=== PATIENT | female | born 1965 | race Caucasian/White ===

== ENCOUNTER 2022-12-11 08:10 | Outpatient (CLI) | payer BC, SELFPAY ==
[2022-12-11 08:48] LABS: Hematocrit 41.4 % (37.0-47.0); Hemoglobin 13.5 g/dL (12.0-15.0)
[2022-12-11 09:00] LABS: Anion Gap 4 mmol/L (8-16); Blood Urea Nitrogen 11 mg/dL (7-17); Calcium 9.1 mg/dL (8.4-10.2); Carbon Dioxide 31 mmol/L (22-30); Chloride 103 mmol/L (98-107); Estimated Glomerular Filt Rate > 60; Glucose 95 mg/dL (65-110); Potassium 4.5 mmol/L (3.4-5.0); Sodium 138 mmol/L (137-145)
== END 2022-12-11 08:11 | disposition home or self-care (01) ==
LOC: ANHSURGERY 08:14
PROVIDERS: Anesthesiology; PCP Family Medicine; Visit Provider Obstetrics & Gynecology
DX: R73.03 Prediabetes (principal); N95.0 Postmenopausal bleeding; Z01.818 Encounter for other preprocedural examination
CPT/HCPCS: 36415; 80048; 85014; 85018

== ENCOUNTER 2022-12-14 01:51 | Day surgery (SDC) | payer BC, SELFPAY ==
[2022-12-06 18:36] VITALS: BMI 25.0
--- NOTE | 2022-12-06 18:41 | SUR.PREOP ---
Report to the Outpatient Waiting Room, entrance under the green pavilion located off [facility], at time _1115 on date _12/14/22 . Planned Procedure Time: __1:15pm . Time changes happen often and if your time is changed the preop area will call you the afternoon before. - You and your visitor will be asked to self-screen and do not enter if you have any COVID symptoms. - A mask is optional within the hospital at this time. Patients may have clear liquids (water, carbonated beverages, clear teas, apple juice) until 3 hours prior to surgery with a maximum of 20 ounces. - No food from midnight until time of surgery - Infants may have breast milk until 4 hours before surgery, formula 6 hours prior to surgery. - Children will be allowed to drink immediately following surgery. If applicable, please bring a bottle or sippy cup to assist with drinking. Juice, water, soda, and popsicles are readily available. For infants on formula, please bring formula the day of surgery. Pacifiers are allowed. Take the following medications with a SIP of water the morning of surgery: __LIOTHYROXINE DO NOT STOP ANY OF YOUR OTHER PRESCRIPTION MEDICATIONS PRIOR TO SURGERY ?EXCEPT THE FOLLOWING Medications to discontinue per physician N/A Date to take last dose___N/A Please no make-up, nail uzbek, hairspray, perfume, deodorant, or body powder the day of surgery. No jewelry (including any body piercings) or valuables the day of surgery, leave them at home. Please take a shower or bath the night before, or the morning of, surgery with an antibacterial soap. Wear comfortable, loose fitting clothing. Children are encouraged to wear pajamas. - Jewelry must be removed prior to entering the operating room. Rings and piercings that are not removed may be cut off. - The hospital will not accept responsibility for valuables. - Please leave all valuables, including medications, at home the day of surgery. If you are going home after surgery, a licensed industrial truck driver must drive you home. - NO public transportation without another adult if you receive anesthesia. - We recommend that an adult stay with you for 24 hours following discharge. - We also recommend that you do not drive, make important decision, drink alcoholic beverages, or take any drugs that were not prescribed by your health care provider for at least 24 hours after your discharge time. For Pediatric surgeries, we recommend two adults accompany the child home. Follow any additional instructions given to you from your surgeon. If you or anyone in your household have experienced Covid symptoms in the past week, please notify your surgeon or the nurse liaison at the phone number below for possible testing. Telephone instructions given to MG PENA and asked if any additional questions and then verbalized understanding. Patient advised to call surgeon office or pre surgery nurse liaison [phone] if any additional questions.
--- NOTE | 2022-12-11 12:19 | PM.IMHP ---
H&P: HPI History of Present Illness Date/Time: 12/11/22 12:19 Chief Complaint: Bleeding Narrative: This is a 57-year-old female with bleeding and laminectomy. Patient has an IUD this in the right spot. There was a submucosal fibroid present and we will be taking out her IUD and removing the fibroid hysteroscopically. Risks and benefits reviewed in great detail. She had all questions answered. She asked proceeded [facility] Past Medical History Medical History Cervical cancer Prediabetes Thyroid dysfunction Surgical History Surgical History H/O LEEP Family History Family History Father Diabetes mellitus Hypertension Cerebrovascular accident Grandparent Diabetes mellitus Hypertension Sibling Asthma Social History Social History Smoking status: Never smoker Second hand tobacco smoke exposure: No Alcohol intake: current Drinks per week: 2 Substance use: never Substance use type: does not use Lack of Transportation: No Lack of Food: Never True Current Housing: I Have Housing Concerned About Future Housing: No Difficulty Paying Gas/Electric Bills: No Difficulty Paying for Meds: No Currently Unemployed: No Education: Bachelor's Degree Difficulty w/ Childcare or Family Care: No Living arrangements: with family Gender identity (if verbalized by the patient): Female Spiritual care concerns: No Agree to blood products: Yes Meds Home Medications and Allergies Home Medications Medication Instructions Recorded Confirmed Type liothyronine 50 mcg tablet 50 mcg PO DAILY 12/03/22 12/06/22 History metformin 500 mg tablet 500 mg PO DAILY 12/03/22 12/06/22 History tirzepatide 2.5 mg/0.5 mL 2.5 mg subcut WEEKLY 12/06/22 12/06/22 History subcutaneous pen injector (Mounjaro) Allergies Allergy/AdvReac Type Severity Reaction Status Date / Time tetanus immune globulin Allergy Mild Blister Verified 12/06/22 18:17 Exam Const: General: cooperative, healthy appearing, comfortable and average body habitus Orientation/consciousness: oriented to person, oriented to place and oriented to time HENMT: Head: normal to inspection Resp: Effort & Inspection: normal respiratory effort Cardio: Rate: regular rate Rhythm: regular rhythm Heart sounds: S1 normal heart sound present and S2 normal heart sound present GI: Inspection: normal to inspection : External Female Exam: normal external appearance Speculum Exam - Vagina: normal appearance of the vagina Speculum Exam - Cervix: normal appearance of the cervix (IUD string seen) Bimanual exam- vagina & uterus: enlarged Bimanual Exam- Adnexa, other: normal adnexae Assessment and Plan Assessment and plan (1) Bleeding: Code(s): R58 - Hemorrhage, not elsewhere classified Status: Acute Plan Removal of IUD/hysteroscopy/polypectomy versus myomectomy. Dilatation curettage.
--- NOTE | 2022-12-14 06:33 | WPDHPUPDATE1 ---
History and Physical Update Update Date/Time: 12/14/22 06:33 History and Physical has been reviewed, including an updated exam of the patient. There are NO changes in the patient's condition. Risks, benefits, and alternatives have been discussed and questions answered. Patient agrees to proceed with procedure.
[2022-12-14] MEDS: ACETAMINOPHEN 500 MG TABLET 1000 MG PO (11:59)
--- NOTE | 2022-12-14 12:05 | P.PNAN_ITS ---
Anes - Initial Pre Proc Eval Procedure: Operation Date: 12/14/22 13:15 Proposed Procedures p Hysteroscopy Dilation and Curettage with Myomectomy, Intrauterine Device Removal - Nigel Mi MD Date/Time: 12/14/22 12:05 Surgeon: Nigel Mi MD Pre Op Diagnosis: post menopausal bleeding, uterine fibroid Patient Data Age: 57 Gender: F Height: 1.68 m Weight: 70.45 kg Allergies Allergy/AdvReac Type Severity Reaction Status Date / Time tetanus immune globulin Allergy Mild Blister Verified 12/14/22 11:58 Home Medications Medication Instructions Recorded Confirmed Type liothyronine 50 mcg tablet 50 mcg PO DAILY 12/03/22 12/06/22 History metformin 500 mg tablet 500 mg PO DAILY 12/03/22 12/06/22 History tirzepatide 2.5 mg/0.5 mL 2.5 mg subcut WEEKLY 12/06/22 12/06/22 History subcutaneous pen injector (Mounjaro) hydrocodone 5 mg-acetaminophen 325 1 tablet PO Q4H PRN pain #20 tabs 12/14/22 Rx mg tablet Patient hx anesthesia problems: none Family hx anesthesia problems: none Results Review: All pre-operative results and documents have been reviewed as part of the pre- operative evaluation. [facility] Past Medical History Medical History Cervical cancer Prediabetes Thyroid dysfunction Surgical History Surgical History H/O LEEP Family History Family History Father Diabetes mellitus Hypertension Cerebrovascular accident Grandparent Diabetes mellitus Hypertension Sibling Asthma Social History Social History Smoking status: Never smoker Second hand tobacco smoke exposure: No Alcohol intake: current Drinks per week: 2 Substance use: never Substance use type: does not use Lack of Transportation: No Lack of Food: Never True Current Housing: I Have Housing Concerned About Future Housing: No Difficulty Paying Gas/Electric Bills: No Difficulty Paying for Meds: No Currently Unemployed: No Education: Bachelor's Degree Difficulty w/ Childcare or Family Care: No Living arrangements: with family Gender identity (if verbalized by the patient): Female Spiritual care concerns: No Agree to blood products: Yes Anes - Eval Final PreProcedure Day of Procedure 12/14/22 12:05 Patient weight: normal Heart: regular rate and rhythm Lungs: clear to auscultation Airway: Mallampati scale class II Neurological: alert and oriented Last oral intake: >/= 8 hours ASA classification: II Emergent: no Anesthetic plan: proceed Anesthesia type and monitoring: general GIVS and standard monitoring Results Review: All pre-operative results and documents have been reviewed as part of the pre- operative evaluation. Informed Consent: The patient's anesthetic plan and its attendant risks and benefits were discussed with the patient/family/POA. Questions were solicited and answers p rovided to the satisfaction of the patient/family/POA.
[2022-12-14 12:12] VITALS: BP 118/52; PULSE 70; RESP 16; TEMP 36.8; O2SAT 98
[2022-12-14 12:39] LABS: Glucose Point of Care 86 mg/dl (65-105)
[2022-12-14] MEDS: LIDOCAINE HCL 1% LOCAL INJ 10 ML VIAL INFILTRATE (13:14)
--- NOTE | 2022-12-14 13:22 | W.PM.PROC2 ---
Procedure Note - Detailed Date of Procedure 12/14/22 Pre-op Diagnosis post menopausal bleeding, uterine fibroid Post-op Diagnosis Other (Postmenopausal bleeding) Procedure Performed removal of IUD hysteroscopy /dilatation Surgeon Nigel Mi MD Anesthesia MAC and Local Indications this is 57-year-old female postmenopausal bleeding an IUD and. Imaging suggested a fibroid or mass inside the uterine lining. Findings The IUD was seen in the uterus. Thickened irregular endometrium was present but no evidence of polyp or fibroid is expected. Each fallopian tube os was seen appeared within normal limits Description of Procedure patient is prepped draped in normal sterile fashion placed in the dorsal lithotomy position. Sedation weighted speculum placed. Cervix grasped with a single-tooth tenaculum. 2.5cc 1% xylocaine anesthesia placed at 2, 4, 8, 10:00 a.m. of the cervix respectively. Uterus sounded to 8cm. After removing the IUD in 1 piece. Serial dilatation with fragmented dilators performed followed by passage of the a BD hysteroscope. Irregular endometrium was seen but no evidence of polyp or fibroid as expected from the ultrasound. It expected that it was perhaps a clot that passed upon removal of the IUD. The uterus was then scraped over the entire 360? after a good grating sound was heard. The instruments removed and all were accounted for. Blood loss estimated at5cc. All sponge, needle, instrument counts were correct. There were no immediate complications Estimated Blood Loss 5 Drains No Packing No Pathology Yes Complications No immediate complications Condition Stable Disposition PACU
[2022-12-14 13:24] VITALS: BP 101/54; PULSE 60; RESP 14; RESP 20; O2SAT 99
[2022-12-14] MEDS: LACTATED RINGERS 1,000 ML 30 ML IV CONT (13:24)
[2022-12-14 13:50] VITALS: BP 102/63; PULSE 58; RESP 20
[2022-12-14 13:54] LABS: Glucose Point of Care 85 mg/dl (65-105)
[2022-12-14 14:20] VITALS: BP 114/58; PULSE 60; RESP 20
== END 2022-12-14 14:32 | disposition home or self-care (01) ==
PROVIDERS: PCP Family Medicine; Visit Provider Obstetrics & Gynecology
PROC: 0U5B8ZZ Destruction of Endometrium, Via Natural or Artificial Opening Endoscopic (ICD-10-PCS; CPT 58563; principal; 2022-12-14 13:15)
DX: N95.0 Postmenopausal bleeding (principal); Z30.432 Encounter for removal of intrauterine contraceptive device; N87.9 Dysplasia of cervix uteri, unspecified; E07.9 Disorder of thyroid, unspecified; R73.03 Prediabetes; Z79.84 Long term (current) use of oral hypoglycemic drugs; Z85.41 Personal history of malignant neoplasm of cervix uteri
CPT/HCPCS: 58301; 58558; 36415; 80048; 82948; 85014; 85018; 88305; A9270; J2250; J2704; J3010; J7120

== ENCOUNTER 2024-07-10 09:24 | Outpatient (CLI) | payer BC, SELFPAY ==
--- OUTSIDE RECORDS SUMMARY | 2024-07-10 09:54 | XMS_ITS | Encounter Summary ---
Author Organization [employer] Address [address] [place] [address] Care Team Providers Care Mitten Sewer Name Role Phone Charli Puckett MD Primary Care Provider [phone] Encounter Details Date Type Department Care Team (Late st Contact Info) Description 08/17/2004 Outpatient Historical [facility] Internal Medicine 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
--- OUTSIDE RECORDS SUMMARY | 2024-07-10 09:54 | XMS_ITS | Encounter Summary ---
Author Organization [employer] Address [address] [place] [address] Care Team Providers Care Kaiawhina Kura [place] Maori Name Role Phone Charli Puckett MD Primary Care Provider [phone] Encounter Details Date Type Department Care Team (Late st Contact Info) Description 07/03/2004 Outpatient Historical [facility] Internal Medicine 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
--- OUTSIDE RECORDS SUMMARY | 2024-07-10 09:54 | XMS_ITS | Encounter Summary ---
Author Organization [facility] Address 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
--- OUTSIDE RECORDS SUMMARY | 2024-07-10 09:54 | XMS_ITS | Encounter Summary ---
Author Organization [employer] Address [address] [place] [address] Care Team Providers Care Printing Table Hand Name Role Phone Charli Puckett MD Primary Care Provider [phone] Encounter Details Date Type Department Care Team (Late st Contact Info) Description 07/03/2004 Outpatient Historical [facility] Internal Medicine 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
--- OUTSIDE RECORDS SUMMARY | 2024-07-10 09:54 | XMS_ITS | Encounter Summary ---
Author Organization [employer] Address [address] [place] [address] Care Team Providers Care System Admin Name Role Phone Charli Puckett MD Primary Care Provider [phone] Encounter Details Date Type Department Care Team (Late st Contact Info) Description 07/03/[address] [facility] Internal Medicine 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
--- OUTSIDE RECORDS SUMMARY | 2024-07-10 09:54 | XMS_ITS | Encounter Summary ---
Author Organization [employer] Address [address] [place] [address] Care Team Providers Care Rn Clinical Documentation Specialist Name Role Phone Charli Puckett MD Primary Care Provider Encounter Details Date Type Department Care Team (Late st Contact Info) Description 10/30/2004 Outpatient Historical [facility] Internal Medicine [address] [place] [address] Donnie Sky MD [address] 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
--- OUTSIDE RECORDS SUMMARY | 2024-07-10 09:54 | XMS_ITS | Encounter Summary ---
Author Organization [employer] [facility] Address 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
--- OUTSIDE RECORDS SUMMARY | 2024-07-10 09:54 | XMS_ITS | Encounter Summary ---
Author Organization [employer] Address [address] [place] [address] Care Team Providers Care Hydrochloric Manufacturing Supervisor Name Role Phone Charli Puckett MD Primary Care Provider [phone] Encounter Details Date Type Department Care Team (Late st Contact Info) Description 07/03/2004 Outpatient Historical [facility] Internal Medicine 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
--- OUTSIDE RECORDS SUMMARY | 2024-07-10 09:54 | XMS_ITS | Encounter Summary ---
Author Organization [facility] Address 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) Social History Tobacco Use Types Packs/Day Years Used Date Smoking Tobacco: Never Assessed Comments Unknown Sex and Gender Information Value Date Recorded Sex Assigned at Not on file Legal Sex Female 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
--- OUTSIDE RECORDS SUMMARY | 2024-07-10 09:54 | XMS_ITS | Encounter Summary ---
Author Organization [employer] Address [address] [place] [address] Care Team Providers Care Wad Lubricator Name Role Phone Charli Puckett MD Primary Care Provider Encounter Details Date Type Department Care Team (Late st Contact Info) Description 01/29/2005 Outpatient Historical [facility] Internal Medicine 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
--- OUTSIDE RECORDS SUMMARY | 2024-07-10 09:54 | XMS_ITS | Encounter Summary ---
Author Organization [employer] Address [address] [place] [address] Care Team Providers Care Book Jogger Name Role Phone Charli Puckett MD Primary Care Provider [phone] Encounter Details Date Type Department Care Team (Late st Contact Info) Description 01/29/2005 Outpatient Historical [facility] Internal Medicine 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
--- OUTSIDE RECORDS SUMMARY | 2024-07-10 09:54 | XMS_ITS | Encounter Summary ---
Author Organization [employer] Address [address] [place] [address] Care Team Providers Care Acquisition Professional Name Role Phone Charli Puckett MD Primary Care Provider [phone] Encounter Details Date Type Department Care Team (Late st Contact Info) Description 07/03/2004 Outpatient Historical [facility] Internal Medicine 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
--- OUTSIDE RECORDS SUMMARY | 2024-07-10 09:54 | XMS_ITS | Clinical Summary ---
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 Gender Identity Not on file Sexual Orientation Not on file Plan of Treatment Health Maintenance Due Date Last Done Comments DTAP/TDAP/TD VACCINES (1 - Tdap) 1985 HEPATITIS B VACCINES (1 of 3 - 19+ 3-dose series) 1985 CERVICAL CANCER SCREENING 1996 BREAST CANCER SCREENING 2006 COLORECTAL SCREENING 07/31/2011 Colorectal Cancer Screening 07/31/2011 FIT-DNA Q 3 years 07/31/2011 FIT/FOBT Q 1 year 07/31/2011 Flex Sig/CT Colonography Q 5 years 07/31/2011 ZOSTER VACCINE (1 of 2) 2016 INFLUENZA VACCINE (#1) 2023 PNEUMOCOCCAL VACCINE 0-49 YEARS Aged Out No longer eligible based on patient's age to complete this topic Care Teams Fishing Tool Supervisor Relationship Specialty Start Date End Date Charli Puckett MD PCP - General 04/22/15
--- OUTSIDE RECORDS SUMMARY | 2024-07-10 09:54 | XMS_ITS | Encounter Summary ---
Author Organization [employer] Address [address] [place] [address] Care Team Providers Care Director Of Public Safety Name Role Phone Charli Puckett MD Primary Care Provider [phone] Encounter Details Date Type Department Care Team (Late st Contact Info) Description 07/03/2004 Outpatient Historical [facility] Internal Medicine 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
--- OUTSIDE RECORDS SUMMARY | 2024-07-10 09:54 | XMS_ITS | Encounter Summary ---
Author Organization [employer] Address [address] [place] [address] Care Team Providers Care Finance Attorney Name Role Phone Charli Puckett MD Primary Care Provider [phone] Encounter Details Date Type Department Care Team (Late st Contact Info) Description 10/30/2004 Outpatient Historical [facility] Internal Medicine 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
--- OUTSIDE RECORDS SUMMARY | 2024-07-10 09:54 | XMS_ITS | Encounter Summary ---
Author Organization [employer] Address [address] [place] [address] Care Team Providers Care Psychiatric Mental Health Nurse Name Role Phone Charli Puckett MD Primary Care Provider [phone] Encounter Details Date Type Department Care Team (Late st Contact Info) Description 08/17/2004 Outpatient Historical [facility] Internal Medicine 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
--- OUTSIDE RECORDS SUMMARY | 2024-07-10 09:54 | XMS_ITS | Encounter Summary ---
Author Organization [employer] Address [address] [place] [address] Care Team Providers Care Enterprise Application Architect Name Role Phone Charli Puckett MD Primary Care Provider [phone] Encounter Details Date Type Department Care Team (Late st Contact Info) Description 07/03/2004 Outpatient Historical [facility] Internal Medicine 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
[2024-07-10 15:40] LABS: Kit Draw Collected
== END 2024-07-10 09:25 | disposition home or self-care (01) ==
LOC: ANHGOSHLAB 09:25
PROVIDERS: PCP Family Medicine; Visit Provider Nurse Practitioner Family
DX: R73.03 Prediabetes (principal); E07.9 Disorder of thyroid, unspecified; E55.9 Vitamin D deficiency, unspecified
CPT/HCPCS: 36415